=== PATIENT | female | born 1940 | race Caucasian/White ===

== ENCOUNTER → 2017-07-23 | Outpatient (CLI) | payer OTHER | LOC: BMCIMAGING 08:18 | PROVIDERS: ATTEND Family Medicine | DX: Z12.31 Encounter for screening mammogram for malignant neoplasm of breast (principal); Z90.11 Acquired absence of right breast and nipple; Z85.3 Personal history of malignant neoplasm of breast; Z80.3 Family history of malignant neoplasm of breast | CPT/HCPCS: G0202-52 ==

== ENCOUNTER → 2017-08-04 | Outpatient (CLI) | payer OTHER | LOC: BMCIMAGING 10:10 | PROVIDERS: ATTEND Family Medicine | DX: Z13.820 Encounter for screening for osteoporosis (principal); M85.80 Other specified disorders of bone density and structure, unspecified site ==

== ENCOUNTER 2018-08-23 14:44 | Observation (INO) | payer OTHER ==
[2018-08-23 15:38] LABS: PLATELET COUNT 209 10^3/uL (150-400)
--- NOTE | 2018-08-23 15:41 | EDPHY ---
H & P Stated Complaint: upper back pain Time Seen by Provider: 08/23/18 15:23 HPI/ROS: CHIEF COMPLAINT: Chest heaviness HISTORY OF PRESENT ILLNESS: This is a 78-year-old female with a history of hypertension, Parkinson's disease, and remote history of breast cancer for which she underwent mastectomy. She has been feeling anxious for the past 2 days and last night was awakened by pain between her shoulder blades. She describes it is a sharp pain that resolved spontaneously. However this morning she notices a heavy feeling in her chest and she has been feeling mildly short of breath. A few months ago she had a Holter monitor placed because she had been feeling a rapid heartbeat. She has had occasional rapid heartbeat over the last few days. She states that the anxiety that she is currently feeling is not similar to what she was feeling a few months ago with a fast heart rate. Her father at age 65 of a heart attack. REVIEW OF SYSTEMS: A ten system review of systems was performed and is negative with the exception of the items mentioned in the HPI. Past medical history: 1. Breast cancer status post right mastectomy 2. Hypertension 3. Parkinson's disease Past surgical history: 1. Right mastectomy 2. Showed rotator cuff repair Social history: She is retired high school band teacher. She is here with her . She does not use tobacco products. She drinks wine with dinner. General Appearance: Alert. Vital signs reviewed. Eyes: Pupils equal and round, no conjunctival injection, no discharge. Anicteric. ENT, Mouth: Mucous membranes are moist, no oropharyngeal erythema or edema. Neck: No lymphadenopathy, supple. Respiratory: Lungs are clear to auscultation; no wheezes, rales, or rhonchi. Cardiovascular: Regular rate and rhythm; no murmur, rub, or gallop. Gastrointestinal: Abdomen is soft and nontender, no masses or organomegaly, bowel sounds normal. Skin: Warm and dry, no rashes on exposed skin, normal color. Back: Nontender to palpation over the thoracolumbar spine. No CVAT. Extremities: No lower extremity edema, no calf tenderness or swelling. Neurological: Alert and oriented. Moving all four extremities easily and equally. Psychiatric: Normal affect. - Personal History Current Tetanus/Diphtheria Vaccine: Yes - Medical/Surgical History Hx Asthma: No Hx Chronic Respiratory Disease: No Hx Diabetes: No Hx Cardiac Disease: No Hx Renal Disease: No Hx Cirrhosis: No Hx Alcoholism: No Other PMH: Parkinson's Disease, Hx of Br CA - Social History Smoking Status: Never smoked Constitutional: Initial Vital Signs Temperature (C) 36.6 C 08/23/18 15:03 Heart Rate 93 08/23/18 15:03 Respiratory Rate 18 08/23/18 15:03 Blood Pressure 124/91 H 08/23/18 15:03 O2 Sat (%) 95 08/23/18 15:03 O2 Delivery Mode Room Air Allergies/Adverse Reactions: No Known Allergies Allergy (Verified 08/23/18 18:31) Home Medications: Medication Instructions Recorded Carbidopa/Levodopa 25/100Mg 1.5 tab PO TID 08/23/18 [Sinemet 25/100 MG (*)] Rasagiline Mesylate [Azilect] 1 mg PO DAILY 08/23/18 amLODIPine BESYLATE [Norvasc 5 mg 5 mg PO DAILY 08/23/18 (*)] Medical Decision Making - Diagnostics EKG Interpretation: EKG reviewed in MUSE by ED physician. ED Course/Re-evaluation: 78-year-old female with a history of hypertension who presents with chest heaviness, now resolved. Evaluation in the emergency department include EKG, chemistries, CBC, troponin. EKG does not show ischemic changes. Troponin is normal. HEART score is 4, based upon the nature of her symptoms, age, and risk factors; this places her in the moderate risk category. I discussed hospitalization with patient and with her and she has agreed to be hospitalized for further evaluation and treatment as needed. She is currently chest pain-free. She did have an elevated D-dimer of 1.68. CT angiogram of the chest was performed and negative for P E. There is a pulmonary nodule and she has been informed of this. There was also some esophageal thickening noted--of unclear significance. There is the possibility that her pain is GI in origin (given that it was also between her scapulae). This will need to be sorted out. She is being admitted to the hospitalist service. She remained stable in ED, no pain. Differential Diagnosis: Chest pain including but not limited to myocardial ischemia, pulmonary embolus, chest wall pain, pleural inflammation and pulmonary infectious causes. - Data Points Laboratory Results: Laboratory Results 08/23/18 15:20 09/24/18 15:20 Medications Given: Discontinued Medications Amlodipine Besylate (Norvasc) 5 mg PO DAILY [facility] Stop: 02/20/19 08:59 Last Admin: 08/24/18 10:32 Dose: 5 mg Carbidopa/Levodopa (Sinemet) 1.5 tab PO TID [facility] Stop: 02/19/19 21:59 Last Admin: 08/24/18 06:46 Dose: 1.5 tab Enoxaparin Sodium (Lovenox) 40 mg SC DAILY [facility] Stop: 02/20/19 08:59 Last Admin: 08/24/18 11:28 Dose: Not Given Miscellaneous Medication (Rasagiline Mesylate [Azilect]) 1 mg PO DAILY [facility] Stop: 02/20/19 08:59 Last Admin: 08/24/18 11:28 Dose: Not Given Point of Care Test Results: Chemistry 08/23/18 15:30 POC Troponin I 0.01 ng/mL ng/mL (0.00-0.08) Departure - Departure Disposition: [facility] Inpatient Acute Clinical Impression: Chest pain Qualifiers: Chest pain type: precordial pain Qualified Code(s): R07.2 - Precordial pain Condition: Good
[2018-08-23] MEDS ORDERED: IOPAMIDOL (ISOVUE 370) 100 ML BTL IV ONE (16:28)
[2018-08-23] MEDS ORDERED: ONDANSETRON DISINTEGRATING 4 MG TAB PO PRN (18:26)
[2018-08-23] MEDS ORDERED: ACETAMINOPHEN 325 MG TAB PO PRN (18:26)
[2018-08-23] MEDS ORDERED: ONDANSETRON 4 MG/2 ML VIAL IVP PRN (18:26)
--- NOTE | 2018-08-23 18:43 | PDGENHP ---
History and Physical - Chief Complaint Chest Pain - History of Present Illness Sandra Chi is a 78 yo F with a Pmhx of Parkinson's disease, Breast cancer s/p mastectomy who presents to [facility] for chest pain. She reports that she was awoken by sleep overnight due to a sharp pain that was located in the center of her chest with radiation to her back between the shoulder pains. She denies associated symptoms of SOB, diaphoresis, nausea, LH. This pain resolved within a minute with no intervention. When she awoke, she reports a dull, chest heaviness that has since resolved. She denies hx of cardiac disease although she recently had a holter monitor performed for tachycardia which was unrevealing per patient. History Information - Allergies/Home Medication List Allergies/Adverse Reactions: No Known Allergies Allergy (Verified 08/23/18 18:31) Home Medications: Carbidopa/Levodopa 25/100Mg [Sinemet 25/100 MG (*)] 1.5 tab PO TID 08/23/18 [ Last Taken 08/23/18] Rasagiline Mesylate [Azilect] 1 mg PO DAILY 08/23/18 [Last Taken 08/23/18] amLODIPine BESYLATE [Norvasc 5 mg (*)] 5 mg PO DAILY 08/23/18 [Last Taken ] I have personally reviewed and updated: family history, medical history, social history, surgical history - Past Medical History hypertension Additional medical history: Parkinson's, breast cancer - Surgical History Reports: mastectomy - Family History Negative for: sudden , CAD - Social History Smoking Status: Never smoked Review of Systems Review of Systems: ROS: 10pt was reviewed & negative except for what was stated in HPI & below Physical Exam Physical Exam: Temp Pulse Resp BP Pulse Ox 36.6 C 76 16 145/111 H 94 08/23/18 15:03 08/23/18 17:00 08/23/18 17:00 08/23/18 17:00 08/23/18 17:00 Lab Data & Imaging Review 08/23/18 15:20 08/23/18 15:20 WBC 3.69 10^3/uL (3.80-9.50) L 08/23/18 15:20 RBC 4.75 10^6/uL (4.18-5.33) 08/23/18 15:20 Hgb 13.4 g/dL (12.6-16.3) 08/23/18 15:20 Hct 40.5 % (38.0-47.0) 08/23/18 15:20 MCV 85.3 fL (81.5-99.8) 08/23/18 15:20 MCH 28.2 pg (27.9-34.1) 08/23/18 15:20 MCHC 33.1 g/dL (32.4-36.7) 08/23/18 15:20 RDW 13.1 % (11.5-15.2) 08/23/18 15:20 Plt Count 209 10^3/uL (150-400) 08/23/18 15:20 MPV 9.5 fL (8.7-11.7) 08/23/18 15:20 Neut % (Auto) 52.0 % (39.3-74.2) 08/23/18 15:20 Lymph % (Auto) 33.1 % (15.0-45.0) 08/23/18 15:20 Navarro % (Auto) 10.0 % (4.5-13.0) 08/23/18 15:20 Eos % (Auto) 3.8 % (0.6-7.6) 08/23/18 15:20 Baso % (Auto) 0.8 % (0.3-1.7) 08/23/18 15:20 Nucleat RBC Rel Count 0.0 % (0.0-0.2) 08/23/18 15:20 Absolute Neuts (auto) 1.92 10^3/uL (1.70-6.50) 08/23/18 15:20 Absolute Lymphs (auto) 1.22 10^3/uL (1.00-3.00) 08/23/18 15:20 Absolute Monos (auto) 0.37 10^3/uL (0.30-0.80) 08/23/18 15:20 Absolute Eos (auto) 0.14 10^3/uL (0.03-0.40) 08/23/18 15:20 Absolute Basos (auto) 0.03 10^3/uL (0.02-0.10) 08/23/18 15:20 Absolute Nucleated RBC 0.00 10^3/uL (0-0.01) 08/23/18 15:20 Immature Gran % 0.3 % (0.0-1.1) 08/23/18 15:20 Immature Gran # 0.01 10^3/uL (0.00-0.10) 08/23/18 15:20 D-Dimer 1.63 ug/mLFEU (0.00-0.50) H 08/23/18 15:20 Sodium 139 mEq/L (135-145) 08/23/18 15:20 Potassium 4.2 mEq/L (3.3-5.0) 08/23/18 15:20 Chloride 104 mEq/L (97-110) 08/23/18 15:20 Carbon Dioxide 25 mEq/l (22-31) 08/23/18 15:20 Anion Gap 10 mEq/L (8-16) 08/23/18 15:20 BUN 21 mg/dL (7-23) 08/23/18 15:20 Creatinine 0.7 mg/dL (0.6-1.0) 08/23/18 15:20 Estimated GFR > 60 08/23/18 15:20 Glucose 101 mg/dL (70-100) H 08/23/18 15:20 Calcium 9.5 mg/dL (8.5-10.4) 08/23/18 15:20 POC Troponin I 0.01 ng/mL (0.00-0.08) 08/23/18 15:30 EKG Interpretation: Positive for: NS ST wave abnormalities Assessment & Plan Assessment: Chest pain (Acute) - Acute onset overnight, radiating to shoulder blades - EKG without ST-T wave changes on admission - Trop negative x1, will trend x3 - May be related to esophageal thickening seen on CT, management as below - Will make NPO at midnight if non-invasive testing should be pursued - CTA negative for PE, dissection on admission Esophageal Thickening - Reports some dysphagia in the past which she attributed to Parkinson's - Will order Speech/Swallow evaluation - Consider GI consult as IP vs. OP for further evaluation, possible EGD - Denies reflux symptoms, will hold on PPI Lung Nodule - Seen on CT - Followup CT in 6-12 months Parkinson's Disease - continue home medications HTN - Continue home Norvasc FEN: PRN PPx: Lovenox Code: DNR Dispo: Admit to Observation
--- NOTE | 2018-08-23 21:00 | CPEKG ---
Test Reason : OPEN Blood Pressure : / mmHG Vent. Rate : 083 BPM Atrial Rate : 083 BPM P-R Int : 153 ms QRS Dur : 087 ms QT Int : 368 ms P-R-T Axes : 064 -18 059 degrees QTc Int : 433 ms Sinus rhythm Borderline left axis deviation Confirmed by Elizabeth Jeter [id number]) on 08/23/2018 8:59:40 PM Referred By: Confirmed By:Elizabeth Jeter
[2018-08-23] MEDS: CARBIDOPA/LEVODOPA 25 MG/100 MG TAB PO SCH (22:21)
[2018-08-24] MEDS: CARBIDOPA/LEVODOPA 25 MG/100 MG TAB PO SCH (06:46)
[2018-08-24] MEDS ORDERED: Rasagiline Mesylate [Azilect] 1 MG PO SCH (09:00)
[2018-08-24] MEDS ORDERED: amLODIPine BESYLATE 5 MG TAB PO SCH (09:00)
[2018-08-24] MEDS ORDERED: ENOXAPARIN 40 MG/0.4 ML SYR SC SCH (09:00)
--- NOTE | 2018-08-24 10:55 | PDCARST ---
CAR Stress Test Results Type of Stress Test: TM stress test Indication: cp Description of Procedure: After informed consent was obtained, pt was exercised according to Wesley Protocol. Monitoring was performed with standard stress voltage tester electrode placement. Vital signs were monitored according to protocol throughout the procedure. STRESS EKG AND HEMODYNAMIC DATA. Exercise time: 6 min. This is equivalent to: 6.9 METS. Resting heart rate: 103 bpm. Resting blood pressure: 118/80 mmHg. Peak heart rate: 138 bpm. This is 96 % of age predicted maximum heart rate response. Peak blood pressure: 146 /76 mmHg. Exercise O2: 94 %. Arrhythmias: Frequent PACs and occasional PVCs in recovery. Reason for termination: The test was stopped due to achieving MPHR. Symptoms: The patient experienced no typical symptoms of angina during stress or recovery. STRESS TEST ANALYSIS. Baseline ECG: SR. Stress ECG: sinus tach. No exercise induced ischemic ECG changes. No arrhythmias noted during exercise and frequent PACs and occasional PVCs in recovery. Blood pressure: Normal blood pressure response to exercise. Exercise tolerance: The patient has normal exercise tolerance adjusted for age and gender. Symptoms: No exercise induced symptoms. Impression: Stress ECG is negative for ischemia. The Sullivan Treadmill Score is +6 , consistent with low cardiovascular risk (<1% annual mortality). Conclusion: Low risk TM stress test
[2018-08-24 11:06] VITALS: BP 137/98
--- NOTE | 2018-08-24 12:36 | GDS ---
FINAL DIAGNOSES: 1. Chest pain, noncardiac. 2. History of Parkinson disease. 3. Hypertension. 4. Pulmonary nodule. 5. Esophageal thickening. HOSPITAL COURSE: 78-year-old female, presented with chest pain. She had negative troponins, nonisch emic EKG. She underwent an exercise stress test which was negative for any signs of inducible ischem ia. She also received a CT angiogram of her chest, which was negative for a PE. It did show a right middle lobe nodule at 6.5 mm, the recommendation is for repeat evaluation in 6-12 months. It also s howed some fullness of the mid thoracic esophagus of uncertain significance, I have given her a presc ription to see Dr. Espinoza of Gastroenterology. This may be the etiology of her chest pain, which did radiate to her back. I have discussed all this with her. She is otherwise discharged in stable condition. FOLLOWUP: 1. Dr. Patel for a repeat CT scan in 6-[address] Espinoza of GI given the esophageal thickening seen on CT scan. /[id number]/MODL
--- NOTE | 2018-08-24 16:33 | ASDISCHSUM ---
Discharge Information Plan Status:Home with No Needs Medically Cleared to Leave: Discharge Date:08/24/2018 01:13 PM CM D/C Disposition:Home, Routine, Self-Care ADT D/C Disposition:Home, Routine, Self-Care Projected Discharge Date:08/24/2018 01:13 PM Transportation at D/C:Family Discharge Delay Reason: Follow-Up Date:08/24/2018 01:13 PM Discharge Slot: Final Diagnosis: Placement Information Patient Contact Information Contact Name:GUNJAN Relationship: Address:[address] [place] [address] Work Phone: [place] Alternate Phone: [facility]/Zip Code:[place] [address] Email: Financial Information Financial Class:BCOP Primary Plan Desc:LUZMARIA DOOLEY PPO UNIV COL Primary Plan Number:[id number] Secondary Plan Desc:MEDICARE OUTPATIENT Secondary Plan Number:[id number] Assessment Information LACE LACE Length of stay for Answers: Less than 1 day current admission Comorbidities - select Answers: Previous myocardial all that apply infarction Other Notes: HTN; Parkinson's diseas e # of Emergency department Answers: 1-2 visits in the last 6 months Social determinants Answers: Mental health diagnosis (anxiety, depression, pers onality disorders, etc.) Score: 6 Date Signed: 08/24/2018 04:32 PM Electronically Signed By:Carito Saab Intervention Information
== END 2018-08-24 13:13 | disposition home or self-care (01) ==
LOC: F2W 20:13
PROVIDERS: ADMIT Internal Medicine; ATTEND Internal Medicine
DX: R07.89 Other chest pain (principal); G20 Parkinson's disease; I10 Essential (primary) hypertension; R91.1 Solitary pulmonary nodule; K22.9 Disease of esophagus, unspecified; Z85.3 Personal history of malignant neoplasm of breast; Z66 Do not resuscitate
CPT/HCPCS: 71046; 71275; 93005; 93017; 97161; 99285; G0378; G8978; G8979; G8980; 84484-PO; J1650; Q9967

== ENCOUNTER → 2019-03-10 | Outpatient (CLI) | payer OTHER | LOC: FIMAGING 13:16 | PROVIDERS: ATTEND Family Medicine | DX: R91.1 Solitary pulmonary nodule (principal) ==